=== PATIENT | female | born 1970 | race Caucasian/White ===

== ENCOUNTER → 2016-11-04 | Outpatient (CLI) | payer BC ==
--- NOTE | 2016-11-06 10:05 | MM ---
Reason for exam: screening (asymptomatic). Last mammogram was performed 4 years and 6 months ago. History: Family history of breast cancer in sister at age 50. Physical Findings: A clinical breast exam by your physician is recommended on an annual basis and results should be correlated with mammographic findings. MG Screening Mammo w CAD Bilateral CC and MLO view(s) were taken. Prior study comparison: May 07, 2012, mammogram, performed at [facility]. April 29, 2012, mammogram, performed at [facility]. The breast tissue is heterogeneously dense. This may lower the sensitivity of mammography. There is no discrete abnormality. ASSESSMENT: Negative, BI-RAD 1 RECOMMENDATION: Routine screening mammogram of both breasts in 1 year.
== END | disposition home or self-care (01) ==
LOC: RADMAMWWP 13:47
PROVIDERS: ATTEND Family Medicine
DX: Z12.31 Encounter for screening mammogram for malignant neoplasm of breast (principal)

== ENCOUNTER 2016-12-02 16:40 | Emergency (ER) | payer BC ==
[2016-12-02] MEDS ORDERED: KETOROLAC 60 MG/2 ML VIAL IM STA (16:58)
[2016-12-02] MEDS ORDERED: Acetaminophen-Codeine 300-30mg TAB PO STA (16:58)
[2016-12-02] MEDS ORDERED: ACETAMINOPHEN TAB 325 MG TAB PO STA (16:58)
--- NOTE | 2016-12-02 17:16 | ED ---
General Adult HPI - General Chief complaint: Upper Respiratory Infection Stated complaint: poss pneumonia Time Seen by Provider: 12/02/16 16:54 Source: patient, RN notes reviewed, old records reviewed Mode of arrival: ambulatory Limitations: no limitations - History of Present Illness Initial comments: This is a 38-year-old female the ER for valuation if cough congestion sore throat and chest pain. Patient states she has increased chest pain when she takes a deep breath, she does admit to history of high cholesterol. No prior cardiac history. Patient's main concern is this new onset fever that started last night into today, her has been sick but he hadn't basically does runny nose and felt fluids. Patient herself is mild shortness of breath, no other travel history, no recent hospitalizations. Patient took some over-the- counter NyQuil with no help. At this time denies specific chest pain, states chest pain just exists when she is coughing - Related Data Home Medications Medication Instructions Recorded Confirmed Acetaminophen Tab [Tylenol Tab] 1,000 mg PO Q6HR PRN 12/02/16 12/02/16 Cholecalciferol [Vitamin D3] 5,000 unit PO DAILY 12/02/16 12/02/16 Cyanocobalamin [Vitamin B-12] 500 mcg PO DAILY 12/02/16 12/02/16 Flaxseed Oil [Nokomis-3 Flaxseed Oil] 1,000 mg PO DAILY 12/02/16 12/02/16 Jessica 500 mg PO DAILY 12/02/16 12/02/16 Vitamin E (Dl,Tocopheryl Acet) 400 unit PO DAILY 12/02/16 12/02/16 [Vitamin E] Allergies Allergy/AdvReac Type Severity Reaction Status Date / Time cortisone Allergy Swelling Verified 12/02/16 17:29 fish oil Allergy Anaphylaxis Verified 12/02/16 17:29 Review of Systems ROS Statement: Those systems with pertinent positive or pertinent negative responses have been documented in the HPI. ROS Other: All systems not noted in ROS Statement are negative. Past Medical History Past Medical History: No Reported History History of Any Multi-Drug Resistant Organisms: None Reported Past Surgical History: Section Past Psychological History: No Psychological Hx Reported Smoking Status: Never smoker Past Alcohol Use History: None Reported Past Drug Use History: None Reported General Exam Limitations: no limitations General appearance: alert, in no apparent distress Head exam: Present: atraumatic, normocephalic, normal inspection Eye exam: Present: normal appearance, PERRL, EOMI. Absent: scleral icterus, conjunctival injection, periorbital swelling ENT exam: Present: normal exam, mucous membranes moist Neck exam: Present: normal inspection. Absent: tenderness, meningismus, lymphadenopathy Respiratory exam: Present: normal lung sounds bilaterally. Absent: respiratory distress, wheezes, rales, rhonchi, stridor Cardiovascular Exam: Present: normal rhythm, tachycardia, normal heart sounds. Absent: systolic murmur, diastolic murmur, rubs, gallop, clicks GI/Abdominal exam: Present: soft, normal bowel sounds. Absent: distended, tenderness, guarding, rebound, rigid Extremities exam: Present: normal inspection, full ROM, normal capillary refill. Absent: tenderness, pedal edema, joint swelling, calf tenderness Back exam: Present: normal inspection Neurological exam: Present: alert, oriented X3, CN II-XII intact Psychiatric exam: Present: normal affect, normal mood Skin exam: Present: warm, dry, intact, normal color. Absent: rash Course Vital Signs 12/02/16 12/02/16 16:48 17:55 Temperature 101 F H 97.8 F Pulse Rate 88 85 Respiratory 20 16 Rate Blood Pressure 138/84 125/69 O2 Sat by Pulse 99 Oximetry - Reevaluation(s) Reevaluation #1: 12/02/16 17:15 Patient is feeling better with fever control, symptomatic improvement Medical Decision Making - Medical Decision Making 38 [id number] cough congestion fever, x-ray negative for pneumonia no fluid , patient retreated from patient bronchitis treated for pneumonia emergency room if symptoms worsen - Lab Data Lab Results 12/02/16 Range/Units 17:08 Influenza Type A RNA Not Detected (Not Detectd) Influenza Type B (PCR) Not Detected (Not Detectd) - Radiology Data Radiology results: report reviewed (Chest x-ray negative for acute disease), image reviewed Disposition Clinical Impression: Upper respiratory infection, Acute bronchitis Disposition: HOME SELF-CARE Condition: Good Instructions: Upper Respiratory Infection (ED) Referrals: Jose Rehman DO [Primary Care Provider] - 1-2 days
--- NOTE | 2016-12-02 17:24 | XR ---
EXAMINATION TYPE: XR chest 2V DATE OF EXAM: 12/02/2016 5:15 PM COMPARISON: NONE HISTORY: Cough and congestion TECHNIQUE: Frontal and lateral views of the chest are obtained. FINDINGS: Heart and mediastinum are normal. Lungs are clear. Diaphragm is normal. Bony thorax and so ft tissues appear normal. IMPRESSION: Normal chest
[2016-12-02 17:57] VITALS: RESP 16
[2016-12-02] MEDS ORDERED: AZITHROMYCIN 500 MG TAB PO STA (18:38)
[2016-12-02 19:44] VITALS: BP 112/67; PULSE 80; TEMP 97.6
== END 2016-12-02 19:33 | disposition home or self-care (01) ==
LOC: EC 16:40
DX: J06.9 Acute upper respiratory infection, unspecified (principal); J20.9 Acute bronchitis, unspecified; Z88.8 Allergy status to other drugs, medicaments and biological substances; Z91.018 Allergy to other foods
CPT/HCPCS: 87502; 71020; 96372; 99284; J1885

== ENCOUNTER 2018-12-21 18:07 | Emergency (ER) | payer BC ==
[2018-12-21 18:16] VITALS: RESP 18
[2018-12-21 19:25] LABS: Basophils # (A) 0.1 k/uL (0-0.2); Basophils % (A) 1 %; Eosinophils # (A) 0.3 k/uL (0-0.7); Eosinophils % (A) 3 %; HCT 41.1 % (34.0-46.0); HGB 13.5 gm/dL (11.4-16.0); Lymphocytes # (A) 3.5 k/uL (1.0-4.8); Lymphocytes % (A) 37 %; MCH 30.5 pg (25.0-35.0); MCHC 32.8 g/dL (31.0-37.0); MCV 92.9 fL (80.0-100.0); Mean Platelet Volume 7.3; Monocytes # (A) 0.4 k/uL (0-1.0); Monocytes % (A) 4 %; Neutrophils # (A) 5.2 k/uL (1.3-7.7); Neutrophils % (A) 55 %; Platelet Count 380 k/uL (150-450); RBC 4.42 m/uL (3.80-5.40); WBC 9.4 k/uL (3.8-10.6)
[2018-12-21 19:32] LABS: ALT 22 U/L (9-52); AST 13 U/L (14-36); Albumin 4.1 g/dL (3.5-5.0); Alkaline Phosphatase 60 U/L (38-126); Anion Gap 8 mmol/L; Blood Urea Nitrogen 11 mg/dL (7-17); Calcium 9.6 mg/dL (8.4-10.2); Carbon Dioxide 26 mmol/L (22-30); Chloride 106 mmol/L (98-107); Glucose 94 mg/dL (74-99); Magnesium 1.9 mg/dL (1.6-2.3); Potassium 4.1 mmol/L (3.5-5.1); Sodium 140 mmol/L (137-145); Total Bilirubin 0.4 mg/dL (0.2-1.3); Total Protein 6.8 g/dL (6.3-8.2)
--- NOTE | 2018-12-21 19:33 | ED ---
Chest Pain HPI - General Chief Complaint: Chest Pain Stated Complaint: chest pain Time Seen by Provider: 12/21/18 18:27 Source: patient Mode of arrival: ambulatory Limitations: no limitations - History of Present Illness Initial Comments: 48-year-old female patient presents to the emergency department today for evaluation of left-sided chest pain, left shoulder pain, and left-sided neck pain. Patient states this started approximately 5 days ago after she was moving a dresser and an elliptical. Patient states that the pain is intermittent and occasionally worsens with movement of the left shoulder. States today she developed a sharp pain that radiates from her left upper back through to her chest. States she does have some left shoulder and left-sided neck tenderness but denies any chest wall tenderness. She denies any shortness of breath, vomiting, nausea, or sweats with this. She denies any fevers or chills. States that she does occasionally have a numb sensation to the left arm. Patient denies any recent rash, shortness breath, abdominal pain, diarrhea, constipation, tingling, dizziness, weakness, hematuria, dysuria, urinary urgency, urinary frequency, headache, visual changes, or any other complaints. - Related Data Previous Rx's Medication Instructions Recorded Cyclobenzaprine [Flexeril] 10 mg PO TID #15 tab 12/21/18 RX: Ibuprofen [Motrin] 600 mg PO Q8HR PRN #30 tab 12/21/18 RX: Lidocaine 5% Patch [Lidoderm 1 patch TOPICAL DAILY #5 patch 12/21/18 5% Patch] Allergies Allergy/AdvReac Type Severity Reaction Status Date / Time cortisone Allergy Swelling Verified 12/21/18 18:55 fish oil Allergy Anaphylaxis Verified 12/21/18 18:55 Review of Systems ROS Statement: Those systems with pertinent positive or pertinent negative responses have been documented in the HPI. ROS Other: All systems not noted in ROS Statement are negative. EKG Findings - EKG Comments: EKG Findings:: EKG obtained at 1842 shows normal sinus rhythm with a ventricular rate of 66, OK interval 126, QRS duration 88, QT 424, QTC 444. No evidence of ST elevation or depression. Past Medical History Past Medical History: CVA/TIA History of Any Multi-Drug Resistant Organisms: None Reported Past Surgical History: Section Past Psychological History: No Psychological Hx Reported Smoking Status: Never smoker Past Alcohol Use History: None Reported Past Drug Use History: None Reported General Exam Limitations: no limitations General appearance: alert, in no apparent distress, other (This is a well- developed, well-nourished adult female patient in no acute distress. Vital signs upon presentation are temperature 98.2F, pulse 66, respirations 18, blood pressure 137/74, pulse ox 97% on room air.) Eye exam: Present: normal appearance, PERRL, EOMI. Absent: scleral icterus, conjunctival injection, periorbital swelling ENT exam: Present: normal exam, normal oropharynx, mucous membranes moist Neck exam: Present: normal inspection, tenderness (Left lateral neck tenderness), full ROM. Absent: meningismus, lymphadenopathy Respiratory exam: Present: normal lung sounds bilaterally. Absent: respiratory distress, wheezes, rales, rhonchi, stridor Cardiovascular Exam: Present: regular rate, normal rhythm, normal heart sounds. Absent: systolic murmur, diastolic murmur, rubs, gallop, clicks GI/Abdominal exam: Present: soft, normal bowel sounds. Absent: distended, tenderness, guarding, rebound, rigid Extremities exam: Present: normal inspection, full ROM, tenderness (left anter ior shoulder), normal capillary refill, other (Skin to the left arm is pink, warm, dry. Cap refills less than 3 seconds. Radial pulses 2+ and equal bilaterally.). Absent: pedal edema, joint swelling, calf tenderness Neurological exam: Present: alert, oriented X3, CN II-XII intact Psychiatric exam: Present: normal affect, normal mood Skin exam: Present: warm, dry, intact, normal color. Absent: rash Course Vital Signs 12/21/18 12/21/18 18:12 20:36 Temperature 98.2 F 97 F L Pulse Rate 66 77 Respiratory 18 18 Rate Blood Pressure 137/74 133/70 O2 Sat by Pulse 97 97 Oximetry Chest Pain MDM - MDM Radiology:3 views of the left shoulder obtained. Report was reviewed in its entirety. Impression by Dr. Polanco shows negative left shoulder exam. Two-view x-ray of the chest is obtained. Report is reviewed in its entirety. Impression by Dr. Polanco shows normal chest with no change. MDM: 48-year-old female patient percents to the emergency department today for evaluation of left upper chest pain, left shoulder pain, left-sided sided neck pain. This started after moving a dresser an elliptical machine approximately 5 days ago. Patient states the pain does increase with movement and she does have tenderness over the left lateral neck and left shoulder. Neurovascular status is intact. Given patient's age and family history of cardiac illnesses we did check labs which were negative troponin negative. Chest x-ray shows no acute cardio pulmonary process. EKG is unremarkable. I did discuss findings and results with the patient. We did discuss musculoskeletal pain as a cause for her symptoms. We'll treat with anti-inflammatories and muscle relaxers. Lidoderm patch be applied to the neck. She is instructed to follow-up with her primary care physician for recheck as soon as possible. Return parameters were discussed in detail. She verbalizes understanding and agrees with this plan. Disposition Clinical Impression: Left shoulder strain Disposition: HOME SELF-CARE Condition: Good Instructions (If sedation given, give patient instructions): Shoulder Sprain (ED) Additional Instructions: Take medications as directed. Follow-up with her primary care physician for recheck in 1-2 days. Return to the emergency department immediately for any new, worsening, or concerning symptoms. Prescriptions: Cyclobenzaprine [Flexeril] 10 mg PO TID #15 tab RX: Lidocaine 5% Patch [Lidoderm 5% Patch] 1 patch TOPICAL DAILY #5 patch RX: Ibuprofen [Motrin] 600 mg PO Q8HR PRN #30 tab PRN Reason: Pain Is patient prescribed a controlled substance at d/c from ED?: No Referrals: Jose Rehman DO [Primary Care Provider] - 1-2 days Time of Disposition: 20:09
[2018-12-21 19:35] LABS: INR 0.9 (<1.2); Partial Thromboplastin Time 24.9 sec (22.0-30.0); Prothrombin Time 9.9 sec (9.0-12.0)
--- NOTE | 2018-12-21 19:37 | XR ---
EXAMINATION TYPE: XR chest 2V DATE OF EXAM: 12/21/2018 COMPARISON: 12/02/2016 HISTORY: Chest pain TECHNIQUE: Frontal and lateral views of the chest are obtained. FINDINGS: Heart and mediastinum are normal. Lungs are clear. Diaphragm is normal. There are chest le ads. Bony thorax appears normal. IMPRESSION: Normal chest. No change.
--- NOTE | 2018-12-21 19:38 | XR ---
EXAMINATION TYPE: XR shoulder complete LT DATE OF EXAM: 12/21/2018 COMPARISON: NONE HISTORY: Neck pain shoulder pain TECHNIQUE: 3 views FINDINGS: There is no sign of fracture nor dislocation. Joint spaces are normal. There are no patholo gic calcifications. IMPRESSION: Negative left shoulder exam.
[2018-12-21] MEDS ORDERED: LIDOCAINE 5% PATCH TOPICAL STA (20:07)
[2018-12-21] MEDS ORDERED: CYCLOBENZAPRINE 10MG STARTER 3 TAB BTL PO STA (20:07)
[2018-12-21] MEDS ORDERED: IBUPROFEN 600 MG STARTER PACK 4 TAB BTL PO STA (20:07)
[2018-12-21 20:37] VITALS: BP 133/70; PULSE 77; TEMP 97
== END 2018-12-21 20:37 | disposition home or self-care (01) ==
LOC: EC 18:07
DX: S46.912A Strain of unspecified muscle, fascia and tendon at shoulder and upper arm level, left arm, initial encounter (principal); M54.2 Cervicalgia; R07.9 Chest pain, unspecified; Z86.73 Personal history of transient ischemic attack (TIA), and cerebral infarction without residual deficits; Z88.8 Allergy status to other drugs, medicaments and biological substances; Z91.013 Allergy to seafood; Z82.49 Family history of ischemic heart disease and other diseases of the circulatory system; X50.0XXA Overexertion from strenuous movement or load, initial encounter
CPT/HCPCS: 36415; 71046; 80053; 83735; 84484; 85025; 85610; 85730; 93005; 99284